=== PATIENT | male | born 1960 | race African-American/Black ===

== ENCOUNTER 2016-06-30 14:35 | Emergency (ER) | payer OTHER ==
[~2016-06-30] VITALS: Ht 185.4 cm; Wt 81.7 kg
[2016-06-30] MEDS ORDERED: BUTALB-APAP-CA1 EACH PO (15:42)
== END 2016-06-30 16:50 | disposition home or self-care (01) ==
LOC: ER 14:35
DX: R51 Headache (principal); F15.10 Other stimulant abuse, uncomplicated; Z88.0 Allergy status to penicillin; Z87.891 Personal history of nicotine dependence